=== PATIENT | male | born 1960 | race Hispanic/Latino ===

== ENCOUNTER → 2017-08-19 | Outpatient (CLI) | payer OTHER | END | disposition home or self-care (01) | LOC: OIH 11:02 | PROVIDERS: ATTEND Family Medicine | DX: M81.0 Age-related osteoporosis without current pathological fracture (principal); M25.512 Pain in left shoulder; M25.511 Pain in right shoulder; M54.5 Low back pain; M25.552 Pain in left hip; M25.551 Pain in right hip | CPT/HCPCS: 72100; 73030; 73521 ==

== ENCOUNTER → 2019-01-02 | Outpatient (CLI) | payer OTHER | END | disposition home or self-care (01) | LOC: OIH 11:10 | PROVIDERS: ATTEND Internal Medicine | DX: M15.4 Erosive (osteo)arthritis (principal) | CPT/HCPCS: 73120 ==

== ENCOUNTER 2022-05-30 19:19 | Emergency (ER) | payer OTHER ==
[~2022-05-30] VITALS: Ht 170.2 cm; Wt 78.5 kg
[2022-05-30] MEDS ORDERED: ACETAMINOPHEN 500 MG TABLET ONE (19:46)
[2022-05-30] MEDS ORDERED: IBUPROFEN 800 MG TAB ONE (19:54)
[2022-05-30] MEDS ORDERED: IBUPROFEN 800 MG TAB PO ONE (20:00)
[2022-05-30] MEDS ORDERED: ACETAMINOPHEN 500 MG TABLET PO ONE (20:00)
[2022-05-30] MEDS ORDERED: AMOX1TAB16 PO (20:18)
[2022-05-30] MEDS ORDERED: KETOROLAC 30MG VIAL (30MG/ML) ONE (20:26)
[2022-05-30] MEDS ORDERED: CEFTRIAXONE 1G VIAL ONE (20:26)
[2022-05-30] MEDS ORDERED: LIDOCAINE HCL 1% 20 ML VIAL ONE (20:27)
[2022-05-30] MEDS ORDERED: CEFTRIAXONE 1G VIAL IM ONE (20:30)
[2022-05-30] MEDS ORDERED: KETOROLAC 30MG VIAL (30MG/ML) IM ONE (20:30)
[2022-05-30 20:52] VITALS: BP 126/81
== END 2022-05-30 20:53 | disposition home or self-care (01) ==
LOC: EDH 19:19
DX: K04.7 Periapical abscess without sinus (principal); I10 Essential (primary) hypertension; E78.00 Pure hypercholesterolemia, unspecified; M19.90 Unspecified osteoarthritis, unspecified site; Z98.890 Other specified postprocedural states
CPT/HCPCS: 99284; 96372 ×2; J0696; J1885

== ENCOUNTER 2022-06-30 19:17 | Inpatient (IN) | payer OTHER ==
[~2022-06-30] VITALS: Ht 170.2 cm; Wt 76.7 kg
[~2022-06-30 19:17] MED LIST: AMOX1TAB16 PO
[2022-06-30] MEDS ORDERED: ONDANSETRON 4MG INJ ONE (20:28)
[2022-06-30 20:58] LABS: BASOPHILS % (AUTO) 0.9 % (0.0-5.0); EOSINOPHILS % (AUTO) 1.1 % (0.0-8.0); HEMATOCRIT 37.2 % (42-54); LYMPHOCYTES % (AUTO) 20.2 % (21.0-51.0); MEAN CORPUSCULAR HEMOGLOBIN 27.9 pg (27.0-33.0); MEAN CORPUSCULAR HGB CONC 32.5 g/dL (32.0-36.0); MEAN CORPUSCULAR VOLUME 85.9 fL (79-99); MONOCYTES % (AUTO) 13.8 % (3.0-13.0); NEUTROPHILS % (AUTO) 63.6 % (40.0-77.0); PLATELET COUNT (AUTO) 179 K/uL (130-400); RED BLOOD CELL COUNT(AUTO) 4.33 MIL/uL (4.50-6.20); WHITE BLOOD COUNT (AUTO) 7.5 K/uL (4.8-10.8)
[2022-06-30] MEDS ORDERED: ONDANSETRON 4MG INJ IVP ONE (21:00)
[2022-06-30 21:18] LABS: CREATININE 0.7 mg/dL (0.5-1.5); POTASSIUM 4.4 mmol/L (3.5-5.1)
[2022-06-30 21:22] LABS: ALBUMIN 3.6 g/dL (3.5-5.0); TOTAL PROTEIN, SERUM 7.4 g/dL (6.0-8.3)
[2022-06-30] MEDS ORDERED: PANTOPRAZOLE 40 MG/VIAL IVP ONE (21:30)
[2022-06-30] MEDS ORDERED: LABETALOL 20MG SYG IV PRN (23:30)
[2022-06-30] MEDS ORDERED: HYDRALAZINE 20MG/ML VIAL IV PRN (23:30)
[2022-06-30] MEDS ORDERED: ONDANSETRON 4MG INJ IVP PRN (23:30)
[2022-06-30] MEDS: 0.9%NACL 1000ML 1,000 ML IV SCH (23:30)
[2022-06-30] MEDS ORDERED: CLONIDINE HCL 0.1 MG TABLET PO PRN (23:30)
[2022-06-30] MEDS ORDERED: MORPHINE 2 MG SYG IVP PRN (23:30)
[2022-07-01] MEDS ORDERED: LISI20TA24 PO (01:28)
[2022-07-01] MEDS ORDERED: LATA7.5D OP (01:28)
[2022-07-01] MEDS ORDERED: DORZ10DR10 OP (01:28)
[2022-07-01] MEDS ORDERED: MELO-108 PO (01:28)
[2022-07-01] MEDS ORDERED: SIMV10TA97 PO (01:28)
[2022-07-01] MEDS ORDERED: TRAM50TA4 PO (01:28)
[2022-07-01 01:40] VITALS: BP 135/90
[2022-07-01 04:00] VITALS: BP 119/75
[2022-07-01] MEDS: INSULIN HUMULIN R 100 UNIT/ML 3ML SQ SCH ×4 (06:00→17:41)
[2022-07-01 06:02] LABS: EOSINOPHILS % (AUTO) 1.2 % (0.0-8.0); HEMATOCRIT 34.9 % (42-54); LYMPHOCYTES % (AUTO) 32.9 % (21.0-51.0); MEAN CORPUSCULAR HEMOGLOBIN 27.8 pg (27.0-33.0); MEAN CORPUSCULAR HGB CONC 32.4 g/dL (32.0-36.0); MEAN CORPUSCULAR VOLUME 85.7 fL (79-99); MONOCYTES % (AUTO) 11.5 % (3.0-13.0); NEUTROPHILS % (AUTO) 53.2 % (40.0-77.0); PLATELET COUNT (AUTO) 166 K/uL (130-400); RED BLOOD CELL COUNT(AUTO) 4.07 MIL/uL (4.50-6.20); RED CELL DISTRIBUTION WIDTH 14.3 % (11.0-15.5); WHITE BLOOD COUNT (AUTO) 5.8 K/uL (4.8-10.8)
[2022-07-01 06:17] LABS: CREATININE 0.8 mg/dL (0.5-1.5); POTASSIUM 4.1 mmol/L (3.5-5.1)
[2022-07-01 07:30] VITALS: BP 134/88
[2022-07-01] MEDS: 0.9%NACL 1000ML 1,000 ML IV SCH ×3 (08:58→22:08)
[2022-07-01] MEDS: DORZOLAMIDE HCL/TIMOLOL MALEAT DROPS 10 ML BOTTLE OP SCH ×2 (08:58→20:29)
[2022-07-01] MEDS ORDERED: PANTOPRAZOLE 40 MG/VIAL IVP SCH (09:00)
[2022-07-01] MEDS ORDERED: ENOXAPARIN SODIUM 30 MG/0.3 ML SQ SCH (09:00)
[2022-07-01] MEDS: PANTOPRAZOLE 40MG INJ 80 MG in 0.9%NACL 100ML 100 ML IVP SCH ×3 (10:43→22:08)
[2022-07-01 11:30] VITALS: BP 131/80
[2022-07-01] MEDS ORDERED: COMPOUND IV REFRIGERATED 1 EACH IVSOLN MISC PRN (12:00)
[2022-07-01 12:44] LABS: HEMATOCRIT 31.2 % (42-54)
[2022-07-01 15:30] VITALS: BP 109/87
[2022-07-01] MEDS ORDERED: ARTIFICAL TEARS SOL 15 ML OU PRN (18:00)
[2022-07-01 20:00] VITALS: BP 128/74
[2022-07-01] MEDS: LATANOPROST 2.5 ML DROPS OP SCH (20:29)
[2022-07-02] VITALS (25 sets, daily range): BP systolic 107–153; BP diastolic 63–90
[2022-07-02 04:54] LABS: HEMATOCRIT 29.4 % (42-54); MEAN CORPUSCULAR HEMOGLOBIN 27.8 pg (27.0-33.0); RED BLOOD CELL COUNT(AUTO) 3.38 MIL/uL (4.50-6.20); RED CELL DISTRIBUTION WIDTH 14.3 % (11.0-15.5); WHITE BLOOD COUNT (AUTO) 4.9 K/uL (4.8-10.8)
[2022-07-02 05:12] LABS: CREATININE 0.7 mg/dL (0.5-1.5); MAGNESIUM 1.8 mg/dL (1.80-2.40); POTASSIUM 3.8 mmol/L (3.5-5.1)
[2022-07-02] MEDS: INSULIN HUMULIN R 100 UNIT/ML 3ML SQ SCH ×5 (05:34→20:37)
[2022-07-02] MEDS: DORZOLAMIDE HCL/TIMOLOL MALEAT DROPS 10 ML BOTTLE OP SCH ×2 (08:53→20:40)
[2022-07-02] MEDS: 0.9%NACL 1000ML 1,000 ML IV SCH ×3 (08:59→16:47)
[2022-07-02] MEDS: PANTOPRAZOLE 40MG INJ 80 MG in 0.9%NACL 100ML 100 ML IVP SCH (11:18)
[2022-07-02] MEDS ORDERED: PROPOFOL 10 MG/ML 20ML VIAL IV ONE ×2 (14:55→15:44)
[2022-07-02] MEDS ORDERED: LIDOCAINE HCL 1% 20 ML VIAL ONE (14:55)
[2022-07-02] MEDS ORDERED: LIDOCAINE PF 100MG/5ML (2%) SYRINGE 5ML ONE (15:35)
[2022-07-02] MEDS: PANTOPRAZOLE 40 MG TAB DR PO SCH (20:39)
[2022-07-02] MEDS: LATANOPROST 2.5 ML DROPS OP SCH (20:40)
[2022-07-03] VITALS: BP 118/67
[2022-07-03 04:00] VITALS: BP 117/75
[2022-07-03 05:34] LABS: HEMATOCRIT 29.6 % (42-54); MEAN CORPUSCULAR HEMOGLOBIN 27.9 pg (27.0-33.0); MEAN CORPUSCULAR HGB CONC 33.1 g/dL (32.0-36.0); MEAN CORPUSCULAR VOLUME 84.3 fL (79-99); RED BLOOD CELL COUNT(AUTO) 3.51 MIL/uL (4.50-6.20); RED CELL DISTRIBUTION WIDTH 14.2 % (11.0-15.5); WHITE BLOOD COUNT (AUTO) 4.1 K/uL (4.8-10.8)
[2022-07-03 05:43] LABS: CREATININE 0.7 mg/dL (0.5-1.5); MAGNESIUM 1.8 mg/dL (1.80-2.40); POTASSIUM 3.6 mmol/L (3.5-5.1)
[2022-07-03] MEDS: INSULIN HUMULIN R 100 UNIT/ML 3ML SQ SCH ×2 (06:05→11:30)
[2022-07-03 08:00] VITALS: BP 136/74
[2022-07-03] MEDS: PANTOPRAZOLE 40 MG TAB DR PO SCH (08:27)
[2022-07-03] MEDS: DORZOLAMIDE HCL/TIMOLOL MALEAT DROPS 10 ML BOTTLE OP SCH (08:27)
[2022-07-03] MEDS ORDERED: OMEP40CA21 PO (10:39)
[2022-07-03 12:00] VITALS: BP 119/72
== END 2022-07-03 13:15 | disposition home or self-care (01) | DRG 377 ==
LOC: EDH 19:17 → EDHIP 23:12 → OBSVTOIN 23:12 → 3BH 07-01 01:47
PROVIDERS: ADMIT Internal Medicine Pulmonary Disease; ATTEND Internal Medicine Pulmonary Disease
PROC: 0DJ08ZZ Inspection of Upper Intestinal Tract, Via Natural or Artificial Opening Endoscopic (ICD-10-PCS; principal; 2022-07-02)
DX: K25.4 Chronic or unspecified gastric ulcer with hemorrhage (principal); K20.91 Esophagitis, unspecified with bleeding; E87.1 Hypo-osmolality and hyponatremia; Z20.822 Contact with and (suspected) exposure to COVID-19; K26.4 Chronic or unspecified duodenal ulcer with hemorrhage; I85.01 Esophageal varices with bleeding; D64.9 Anemia, unspecified; E78.00 Pure hypercholesterolemia, unspecified; G89.29 Other chronic pain; I10 Essential (primary) hypertension; M54.50 Low back pain, unspecified; M19.90 Unspecified osteoarthritis, unspecified site; Z79.1 Long term (current) use of non-steroidal anti-inflammatories (NSAID)
CPT/HCPCS: 36415; 43235; 80048; 80053; 82140; 82948; 83690; 83735; 84100; 85014; 85018; 85025; 85027; 86850; 86900; 86901; 87426; 93005; A4606; C9113; G0378; J1650; J2001; J2405; J2704; J7030